=== PATIENT | male | born 1980 | race Caucasian/White ===

== ENCOUNTER 2017-02-15 09:12 | Emergency (ER) | payer OTHER ==
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
[2017-02-15] MEDS ORDERED: OXYCODONE/APAP 5/325 TAB PO ONE ×3 (10:17→21:38)
[2017-02-15] MEDS ORDERED: HALOPERIDOL LACT 5 MG/ML INJ IM ONE (10:45)
[2017-02-15 12:27] LABS: % IMMATURE GRANULYOCYTES 0.4 % (0.0-1.1); ABSOLUTE IMMATURE GRANULOCYTES 0.03 10^3/uL (0.00-0.10); ADD DIFF? NO; ADD MORPH? NO; ADD SCAN? NO; ATYPICAL LYMPHOCYTE FLAG 0 (0-99); FRAGMENT RBC FLAG 0 (0-99); HEMATOCRIT 46.6 % (40.0-51.0); HEMOGLOBIN 15.7 g/dL (13.7-17.5); LEFT SHIFT FLG 0 (0-99); LIPEMIA HEMOLYSIS FLAG 80 (0-99); MEAN CELL HEMOGLOBIN 28.6 pg (27.9-34.1); MEAN CELL HEMOGLOBIN CONCENTR. 33.7 g/dL (32.4-36.7); PLATELET CLUMPS FLAG 0 (0-99); PLATELET COUNT 202 10^3/uL (150-400); RED BLOOD CELL COUNT 5.48 10^6/uL (4.40-6.38); RED CELL DISTRIBUTION WIDTH 16.3 % (11.5-15.2)
[2017-02-15 12:48] LABS: ANION GAP 10 mEq/L (8-16); CALCIUM 9.4 mg/dL (8.5-10.4); CARBON DIOXIDE 24 mEq/l (22-31); CHLORIDE 105 mEq/L (97-110); CREATININE 0.9 mg/dL (0.7-1.3); ETHANOL SERUM < 10 mg/dL (0-10); GLOMERULAR FILTRATION RATE > 60; GLUCOSE 82 mg/dL (70-100); POTASSIUM 4.2 mEq/L (3.5-5.2); SALICYLATE < 1.0 mg/dL (2.0-20.0); SODIUM 139 mEq/L (134-144)
[2017-02-15 16:56] VITALS: RESP 16
[2017-02-15] MEDS ORDERED: clonazePAM 1 MG TAB PO ONE (23:40)
[2017-02-16] MEDS ORDERED: OXYCODONE/APAP 5/325 TAB PO ONE ×2 (04:17→09:10)
[2017-02-16] MEDS ORDERED: OXYCODONE/APAP 5/325 TAB ONE (09:18)
[2017-02-16 11:03] VITALS: BP 130/88; PULSE 68; TEMP 97.9; O2SAT 96
== END 2017-02-16 11:02 | disposition home or self-care (01) ==
LOC: EDUNIT#
DX: F91.8 Other conduct disorders (principal); Z04.6 Encounter for general psychiatric examination, requested by authority
CPT/HCPCS: 80305; G0480

== ENCOUNTER 2017-05-22 07:29 | Emergency (ER) | payer OTHER ==
--- NOTE | 2017-05-22 08:29 | EDPHY ---
H & P Stated Complaint: requests pain med refill--psychiatrist oot- did not refill, recent hand sx Time Seen by Provider: 05/22/17 08:06 HPI/ROS: Chief complaint: Medication refill History of present illness: This is a 37-year-old male who presents to the emergency department requesting a refill of his pain medication. Patient is on chronic pain medication for neck pain. Further, he injured his hand a few weeks ago and had to undergo surgery to repair tendons which is exacerbating his pain. He normally gets refills of his pain medications on Wednesday and Wednesday. However his psychiatrist is out of town who provides the medicines and he was unable get his pain medications this Wednesday. He did receive his pain medications of Oxymorphone on Wednesday. He states he feels generally unwell. No other complaints. - Personal History Current Tetanus/Diphtheria Vaccine: Unsure Current Tetanus Diphtheria and Acellular Pertussis (TDAP): Unsure Tetanus Vaccine Date: < 10 years - Medical/Surgical History Hx Asthma: No Hx Chronic Respiratory Disease: No Hx Diabetes: No Hx Cardiac Disease: No Hx Renal Disease: No Hx Cirrhosis: No Hx Alcoholism: No Hx HIV/AIDS: No Hx Splenectomy or Spleen Trauma: No Other PMH: Pneumonia,. chronic neck pain, hypothyroid, mental health d/o see2 Dr Levy - Social History Smoking Status: Current every day smoker - Physical Exam Exam: General Appearance: Patient is sleeping in bed on my arrival to the room. He does awaken and respond to questioning. Eyes: Pupils equal and round no injection. Respiratory: Chest is nontender, lungs are clear to auscultation. Cardiac: regular rate and rhythm. Musculoskeletal: Left hand is in a volar splint with the wrist in extension. Skin: Surgical wounds to the left hand appear to be healing well. Constitutional: Initial Vital Signs Temperature (C) 36.5 C 05/22/17 07:37 Heart Rate 91 05/22/17 07:37 Respiratory Rate 16 05/22/17 07:37 Blood Pressure 127/86 H 05/22/17 07:37 O2 Sat (%) 97 05/22/17 07:37 O2 Delivery Mode Room Air Allergies/Adverse Reactions: midazolam HCl [From Versed] Allergy (Severe, Verified 02/15/17 09:23) Other-Enter Comments Home Medications: Medication Instructions Recorded Oxymorphone HCl 5 mg PO Q6HRS PRN 02/15/17 Propranolol HCl [Inderal LA 120mg] 120 mg PO DAILY 02/15/17 clonazePAM [Klonopin (*)] 0.5 mg PO DAILY 02/15/17 Levothyroxine [Synthroid 75 mcg 75 mcg PO DAILY06 02/16/17 (*)] Oxymorphone HCl [Oxymorphone HCl 20 mg PO BID 02/16/17 ER] clonazePAM [klonoPIN (*)] 1 mg PO HS 02/16/17 Medical Decision Making ED Course/Re-evaluation: Patient seen under the supervision of my secondary supervising physician Dr. Ajay Patel. Patient presents to the emergency department requesting a refill of his pain medication. Patient is nontoxic. Vital signs are stable. He is sleeping comfortably in bed but awakens on questioning. I have discussed with patient and his father we will not refill pain medications. Any chronic pain medications need to be refilled by his own doctor. They have asked me to inspect the left hand where he had hand surgery a few weeks ago. Wound sites appear to be healing well. Hand is cleaned. Fresh splint padding is placed as the old padding is dirty and deteriorating, the hand is then placed back in the splint he was originally in a new Demetrius wrap is applied. I have asked them to follow up with his doctor this week for recheck and refill of his pain medications as well as his hand surgeon this week for recheck of his hand. Return precautions are given. Departure - Departure Disposition: Home, Routine, Self-Care Clinical Impression: Medication refill, Encounter for wound care Condition: Good Instructions: Medicine Refill (ED) Additional Instructions: Follow-up with your primary care doctor next week for continued evaluation and care Please follow up with her hand doctor next week for re-evaluation of your hand The emergency department does not refill chronic pain medications, please talk to the doctor who prescribes them normally for your for refills If you develop any worsening symptoms or new symptoms return to the emergency room for recheck Referrals: Dominguez Graham MD [Primary Care Provider] - As per Instructions
[2017-05-22 09:11] VITALS: BP 122/69; PULSE 82; RESP 18; TEMP 98.1; O2SAT 95
== END 2017-05-22 09:11 | disposition home or self-care (01) ==
DX: Z76.0 Encounter for issue of repeat prescription (principal); F17.200 Nicotine dependence, unspecified, uncomplicated; Z48.01 Encounter for change or removal of surgical wound dressing

== ENCOUNTER 2017-07-24 08:49 | Emergency (ER) | payer OTHER ==
[2017-07-24 08:58] VITALS: BP 113/75; PULSE 102; RESP 20; TEMP 97.7; O2SAT 100
--- NOTE | 2017-07-24 09:26 | EDPHY ---
H & P Smoking Status: Current every day smoker Time Seen by Provider: 07/24/17 08:57 HPI/ROS: CHIEF COMPLAINT: Abscess HISTORY OF PRESENT ILLNESS: 37-year-old male presents to the emergency department by private vehicle requesting drainage of 2 abscesses on his left lower leg. The patient has a history of previous substance abuse although states he has been clean for last 10 years. He is on chronic narcotics. He denies fevers or chills. Denies chest pain or difficulty breathing. Denies abdominal pain. He states that he has not take his opiate medication today in anticipation of having "a procedure ". REVIEW OF SYSTEMS: Constitutional: No fever, no chills. Eyes: No double or blurry vision. ENT: No sore throat. Respiratory: No cough, no shortness of breath. Cardiac: No chest pain. Gastrointestinal: No abdominal pain, vomiting or diarrhea. Genitourinary: No dysuria. Musculoskeletal: No neck or back pain. Skin: Abscesses as noted above. No rashes. Neurological: No headache. (IvonneFarhana irwin) Past Medical/Surgical History: Chronic pain, narcotic dependence (IvonneFarhana irwin) Social History: Single (LindaFarhana M) Physical Exam: General Appearance: Alert, moderate distress. Afebrile. Anxious. Eyes: Pupils equal and round. Extraocular motions are all intact. ENT: Mouth: Mucous membranes moist. Respiratory: No wheezing, rhonchi, or rales, lungs are clear to auscultation. Cardiovascular: Regular rate and rhythm. Gastrointestinal: Abdomen is soft and nontender, no masses, no rebound or guarding, bowel sounds normal. Neurological: Alert and oriented x 3, cranial nerves II through XII grossly intact Skin: Erythematous lump noted to the medial aspect of the left mid calf is very tender and fluctuant. Surrounding erythema. There is also a similar although smaller erythematous lump to the anterior aspect of his left knee just superior to the patella. No palpable bony tenderness. Warm and dry, no rashes. Musculoskeletal: Nontender to palpate along the cervical, thoracic or lumbar spine. Neck is supple. Extremities: Full range of motion and no peripheral edema. Psychiatric: Patient is oriented X 3, there is no agitation. (IvonneFarhana irwin) Constitutional: Initial Vital Signs Temperature (C) 36.5 C 07/24/17 08:54 Heart Rate 102 H 07/24/17 08:54 Respiratory Rate 20 07/24/17 08:54 Blood Pressure 113/75 07/24/17 08:54 O2 Sat (%) 100 07/24/17 08:54 O2 Delivery Mode Room Air Allergies/Adverse Reactions: midazolam HCl [From Versed] Allergy (Severe, Verified 07/24/17 08:53) Other-Enter Comments Home Medications: Medication Instructions Recorded Oxymorphone HCl 5 mg PO Q6HRS PRN 02/15/17 Propranolol HCl [Inderal LA 120mg] 120 mg PO DAILY 02/15/17 clonazePAM [Klonopin (*)] 0.5 mg PO DAILY 02/15/17 Levothyroxine [Synthroid 75 mcg 75 mcg PO DAILY06 02/16/17 (*)] Oxymorphone HCl [Oxymorphone HCl 20 mg PO BID 02/16/17 ER] clonazePAM [klonoPIN (*)] 1 mg PO HS 02/16/17 Medical Decision Making ED Course/Re-evaluation: I also saw the patient at 9:20 a.m.. I reviewed the history of gradually developing abscesses over the last 4-5 days with increased pain redness and swelling. We reviewed the patient's medications that he is on daily narcotics. I recommended incision and drainage. The patient says he is not going to allow these to be incised and drained without being given pain medication. I explained the alternatives to narcotics including giving the patient ibuprofen, using topical anesthesia, lidocaine infiltration. The patient disagrees with this plan and says he is not going to allow this without being given narcotics. We again talked about that the patient is on chronic and daily narcotics and we discussed that our hospital is trying to address narcotic use and use alternatives to narcotics. Patient tells me he is not going to allow this to happen that he is going to call his father to go to another hospital. He is encouraged to return and I have recommended that he allow us to incise and drain the abscesses as they will likely get worse. He is encouraged to return at any point for incision drainage. (Elijah Edgar) 37-year-old male presents with abscess to his left lower extremity. The patient requested narcotic pain medication. I explained to him that we could give him ibuprofen or Tylenol as well as topical anesthetic prior to lidocaine infiltration. I explained to the patient that the abscesses noted to his left lower extremity would require incision and drainage in were happy to do this for him today. Patient became very unhappy and requested to see another provider. I spoke with Dr. Elijah Edgar who also talked with the patient. The patient elected to leave the emergency department go to another hospital. He understands that he can return if he changes his mind. (Farhana Mckeon) Differential Diagnosis: Including but not limited to abscess, cellulitis, retained foreign body (Farhana Mckeon) Departure - Departure Disposition: Home, Routine, Self-Care Clinical Impression: Abscess of left lower extremity Condition: Good Instructions: Abscess (ED) Additional Instructions: You have been seen and evaluated in the emergency department and we recommended incision and drainage of the abscesses on your left lower extremity. You have declined incision and drainage. You stated that you wanted to leave the hospital without the incision and drainage. Please return to the emergency department if you change your mind, if you develop increased pain or swelling, fevers or chills, or if you feel worse in any way. Referrals: Dominguez Graham MD [Primary Care Provider] - 1-2 days without fail Stand Alone Forms: Narcotic Guidelines
== END 2017-07-24 09:37 | disposition home or self-care (01) ==
DX: L02.416 Cutaneous abscess of left lower limb (principal); F17.200 Nicotine dependence, unspecified, uncomplicated

== ENCOUNTER 2018-04-29 10:23 | Emergency (ER) | payer OTHER ==
[2018-04-29 11:59] LABS: PLATELET COUNT 150 10^3/uL (150-400)
--- NOTE | 2018-04-29 15:54 | EDPHY ---
H & P Smoking Status: Current every day smoker Time Seen by Provider: 04/29/18 11:53 HPI/ROS: CHIEF COMPLAINT: Hallucinating, M1 hold HISTORY OF PRESENT ILLNESS: 38-year-old male presents to the emergency department on M1 hold with hallucinations. The patient has a history of substance abuse problem. Apparently a welfare check was called on the patient and he was placed on an M1 hold and brought to the emergency department for evaluation. Unknown mental health history. Currently has no physical complaints. Denies pain in his chest, difficulty breathing, abdominal pain. He denies suicidal or homicidal ideation. He denies auditory or visual hallucinations. REVIEW OF SYSTEMS: Constitutional: No fever, no chills. Eyes: No double or blurry vision. ENT: No sore throat. Respiratory: No cough, no shortness of breath. Cardiac: No chest pain. Gastrointestinal: No abdominal pain, vomiting or diarrhea. Genitourinary: No dysuria. Musculoskeletal: No neck or back pain. Skin: No rashes. Neurological: No headache. (Farhana Mckeon) Past Medical/Surgical History: Substance abuse (Farhana Mckeon) Social History: Single (Farhana Mckeon) Physical Exam: General Appearance: Alert, no distress. Eyes: Pupils equal and round. Extraocular motions are all intact. ENT: Mouth: Mucous membranes moist. Respiratory: No wheezing, rhonchi, or rales, lungs are clear to auscultation. Cardiovascular: Regular rate and rhythm. Gastrointestinal: Abdomen is soft and nontender, no masses, no rebound or guarding, bowel sounds normal. Neurological: Uncooperative, cannot determine. Skin: Warm and dry, no rashes. Musculoskeletal: Nontender to palpate along the cervical, thoracic or lumbar spine. Neck is supple. Extremities: Full range of motion and no peripheral edema. Psychiatric: no agitation. (Farhana Mckeon) Constitutional: Initial Vital Signs Temperature (C) 37.8 C 04/29/18 10:23 Heart Rate 125 H 04/29/18 10:23 Respiratory Rate 17 04/29/18 10:23 Blood Pressure 134/78 H 04/29/18 10:23 O2 Sat (%) 91 L 04/29/18 10:23 O2 Delivery Mode Room Air Allergies/Adverse Reactions: midazolam HCl [From Versed] Allergy (Severe, Verified 07/24/17 08:53) Other-Enter Comments Home Medications: Medication Instructions Recorded Oxymorphone HCl [Oxymorphone HCl 20 mg PO BID 02/16/17 ER] Medical Decision Making ED Course/Re-evaluation: 38-year-old male presents to the emergency department with altered mental status on M1 hold. The patient has a history of polysubstance abuse. He denies drug use. The patient is able to answer questions but then he will have periods where he calls himself "Estela De Jesus"and seems very altered. He has been medically cleared and is awaiting mental health evaluation. The patient has been evaluated by mental health and they are looking for placement. (Farhana Mckeon) Differential Diagnosis: Altered mental status including but not limited to hypoglycemia, infectious process, electrolyte abnormality, head injury and intoxicants. Depression including functional and major depression, situational depression, medication side effect, drugs and alcohol abuse. (Farhana Mckeon) Care Turn Over: Care will be turned over to Dr. Catarino Velez at shift change. (Farhana Mckeon) - Data Points Laboratory Results: Laboratory Results 04/29/18 11:30 04/29/18 11:30 Departure - Departure Disposition: Other Psych, Not Ted Clinical Impression: Altered mental status, History of substance abuse Condition: Good Referrals: NONE *PRIMARY CARE P,. [Primary Care Provider] - As per Instructions
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
--- NOTE | 2018-04-29 17:23 | ASMTTCLDSP ---
TLC Discharge Disposition Disposition: Answers: Transfer Disposition Notes: Notes: In consultation with [facility] ED physician, Catarino Velez MD and psychiatrist, Odell Daniels MD, both concurred that pt appears to meet 27-65 criteria requiring psychiatric hospitalization as the patient appears to be an imminent risk of harm to self and others due to a mental illness condition. Discharge Concerns/Recommendations: Notes: Seek placement at a dual dx inpatient psych Type of Hold: Answers: M1/72-hour Hold Hold initiated by: Answers: Police For Transfers, Accepting [facility]: For Transfers, Accepting Dr. Venessa Hager Psychiatrist: For Transfers, Reason [facility] Substance Abuse Patient is Being Transferred: Date Signed: 04/29/2018 05:22 PM Electronically Signed By:Ajay Ren
[2018-04-29 20:52] VITALS: BP 130/75
== END 2018-04-29 20:30 ==
LOC: EDUNIT#
DX: R41.82 Altered mental status, unspecified (principal); F17.200 Nicotine dependence, unspecified, uncomplicated; Z87.898 Personal history of other specified conditions
CPT/HCPCS: 80305; G0480